=== PATIENT | male | born 1970 ===

== ENCOUNTER 2024-02-15 17:52 | Emergency (ER) | payer OTHER, SELFPAY ==
--- NOTE | ~2024-02-15 | XR_ITS ---
EXAMINATION: XR foot LT min 3V DATE: 02/15/2024 18:12 INDICATION: Left foot amputation. TECHNIQUE: 4 views of left foot were obtained. COMPARISON: None. FINDINGS: There is a comminuted fracture of second proximal phalanx including the neck and medial bas e. The main distal fracture fragment demonstrates 4 mm medial plantar displacement, 20 degrees medial plantar angulation, and shortening. There is an open comminuted fracture of first distal phalanx. Th e main distal fracture fragment demonstrates 8 mm distraction and displacement. There is an open comm inuted fracture of head and diaphysis of first metatarsal with displacement and angulation. Other rick nt spaces are normal. There are enthesophytes at the posterior and plantar aspects of calcaneal tuber osity. IMPRESSION: 1. Open comminuted fractures of first metatarsal and first distal phalanx. 2. Comminuted fracture of second proximal phalanx. Reviewed, dictated and finalized at location E.
[2024-02-15 17:56] VITALS: BP 160/94; PULSE 90; RESP 136; TEMP 36.4; O2SAT 99
--- NOTE | 2024-02-15 18:11 | ED.WOUNDLAC ---
HPI - Wound/Laceration General Chief Complaint: Wound/Laceration Stated Complaint: foot laceration Time Seen by Provider: 02/15/24 17:57 History of Present Illness HPI narrative: Patient was mowing lawn when foot went under mower. L foot. Related Data Allergies Allergy/AdvReac Type Severity Reaction Status Date / Time amoxicillin Allergy Severe HIVES Verified 02/15/24 18:17 Penicillins Allergy Unknown Hives Verified 02/15/24 18:17 Review of Systems Review of Systems: All systems reviewed & are unremarkable except as noted in HPI and below PMFSH Past Medical History Medical History Arthritis of right hip BMI 27.0-27.9,adult Body mass index [BMI] 25.0-25.9, adult (03/09/19) Cholecystitis, acute Hemorrhoids Hypertension Iliotibial band syndrome affecting right lower leg Lumbar radiculopathy, acute Tobacco abuse Family History Family History Sibling Family history of thyroid disease Father Hypertension Large cell lymphoma Hyperlipidemia Mother No problems noted. Sibling Family history of thyroid disease Hypertension Other Family history of malignant neoplasm Social History Social History Smoking packs per day: 1 Smoking cigarettes per day: 20.0 Years smoked: 30 Smoking pack-years: 30.00 Smoking status: Current every day smoker (30 plus years) Tobacco type: cigarettes (1 ppd) Alcohol intake: current Substance use: never Living arrangements: with family Occupation/Education: occupation Gender identity (if verbalized by the patient): Male Exam Narrative: EXAMINATION OF ORGAN SYSTEMS/BODY AREAS: Constitutional: Vital signs per nursing GENERAL: Appears uncomfortable HEAD: Normal with no signs of head trauma. EYES: EOMI, conjunctiva normal ENT: Hearing grossly intact LUNGS: Nonlabored breathing. HEART: Normal DP pulse left (despite homemade tourniquet made with vape pen) ABD: No distension EXT: Traumatic amputation L great toe/foot, injury to 2nd digit; bleeding controlled SKIN: see above NEURO: [Alert and oriented x 3. No gross focal sensory or strength deficits.] PSYCH: Normal affect Course Vital Signs Vital signs: Vital Signs Temperature 97.6 F 02/15/24 17:56 Pulse Rate 90 02/15/24 17:56 Respiratory Rate 136 H 02/15/24 17:56 Blood Pressure 160/94 H 02/15/24 17:56 Pulse Oximetry 99 02/15/24 17:56 Temperature 97.6 F 02/15/24 17:56 Pulse Rate 90 02/15/24 17:56 Respiratory Rate 136 H 02/15/24 17:56 Blood Pressure 160/94 H 02/15/24 17:56 Pulse Oximetry 99 02/15/24 17:56 MDM - Wound/Laceration MDM Narrative Medical decision making narrative: 53M p/w traumatic L big toe / distal foot amputation from lawnmower. DP pulse intact, L big toe hanging by piece of skin, bleeding controlled. VSS. Patient given 100mcg fentanyl, 2g ancef, tdap. Wound will be dressed/irrigated. XR obtained. he does have 2nd phalanx fracture, 1st metatarsal fracture. Patient's requests transfer to [facility]. Dr. Garcia [facility] ER accepts ER to ER transfer. Discharge Plan Discharge Clinical Impression: Injury of foot, left Patient Disposition: Acute Care Hospital Condition: Serious Prescriptions: No Action alprazolam [Xanax] 0.5 mg tablet 0.5 mg PO DAILY PRN (Reason: anxiety) Qty: 30 0RF hydrochlorothiazide 25 mg tablet See Rx Instructions .ROUTE .COMPLEX Qty: 90 0RF Dose Instruction: TAKE 1 TABLET BY MOUTH DAILY Rx Instructions: TAKE 1 TABLET BY MOUTH DAILY rosuvastatin [Crestor] 20 mg tablet 20 mg PO DAILY Qty: 30 4RF Follow-up/Referrals: Srinivas Redd MD [Primary Care Provider] -
[2024-02-15] MEDS: ceFAZolin 1 GM/NS 50 ML 1 GM/50 ML BAG 400 GM ×2 (18:19→18:20)
[2024-02-15] MEDS: fentaNYL CITRATE INJ (*CRX) 100 MCG/2 ML VIAL IV PUSH ×2 (18:20→19:13)
[2024-02-15] MEDS: ONDANSETRON INJ 4 MG/2 ML VIAL (18:20)
[2024-02-15] MEDS: TETANUS,DIPHTHERIA,AC PERTUSSIS ADULT (0.5 ML) BOOSTRIX IM (18:21)
[2024-02-15 18:22] VITALS: BP 151/73; PULSE 76; RESP 18; O2SAT 98
[2024-02-15 19:14] VITALS: BP 132/88; PULSE 67; RESP 20; TEMP 36.6; O2SAT 100
== END 2024-02-15 19:20 | disposition short-term general hospital (02) ==
PROVIDERS: Emergency Provider Emergency Medicine; PCP Family Medicine
DX: S92.312B Displaced fracture of first metatarsal bone, left foot, initial encounter for open fracture (principal); S98.122A Partial traumatic amputation of left great toe, initial encounter; S92.422B Displaced fracture of distal phalanx of left great toe, initial encounter for open fracture; S92.512A Displaced fracture of proximal phalanx of left lesser toe(s), initial encounter for closed fracture; Z23 Encounter for immunization; W28.XXXA Contact with powered lawn mower, initial encounter
CPT/HCPCS: 73630; 90471; 90715; 96365; 96375; 96376; 99285; J0690; J2405; J3010